=== PATIENT | male | born 1945 | race Caucasian/White ===

== ENCOUNTER → 2017-03-25 | Outpatient (CLI) | payer MEDICARE, OTHER ==
[~2017-03-25] MED LIST: ASPIR-LOW81 MG PO; ASPIR-LOX325 MG PO; ASPIRIN 32325 MG/TAB PO; ASPIRIN E.C. 8181 MG PO; CENTRUM SILVER1 TA1 PO; CEPHALEXIN500 M1 PO; COMPLETE SENIOR1 TA1 PO; EFFEXOR 75M75 MG/TAB PO; EFFEXOR-XR150 MG PO; FERROUS SULFAT325 M1 PO; FLOMAX 0.40.4 MG/CAP PO; FLONASE0.05 MG/AC NS; GABAPENTIN300 M1 PO; IMITREX25 MG PO; LORTAB 5/500 501 TAB PO; MAXALT10 MG PO; NORCO 325 MG-51 TAB PO; PRILOSEC 20MG20 MG PO; SINGULAIR 110 MG/TAB PO; SINGULAIR10 MG PO; ULTRAM50 MG PO; ZOCOR40 MG PO
== END ==
LOC: COL.RAD 07:08
DX: K55.9 Vascular disorder of intestine, unspecified (principal); I70.0 Atherosclerosis of aorta; J43.9 Emphysema, unspecified; N28.1 Cyst of kidney, acquired
CPT/HCPCS: Q9967

== ENCOUNTER → 2018-10-27 | Outpatient (CLI) | payer MEDICARE | LOC: COL.RAD 12:36 | DX: N50.3 Cyst of epididymis (principal); N43.3 Hydrocele, unspecified ==

== ENCOUNTER → 2018-11-03 | Outpatient (REF) | LOC: ZLAB.WCH 08:34 | DX: Z01.89 Encounter for other specified special examinations (principal) ==

== ENCOUNTER 2018-11-21 06:32 | Emergency (ER) | payer MEDICARE ==
[~2018-11-21] VITALS: Ht 167.6 cm; Wt 57.3 kg
[2018-11-21 06:41] VITALS: TEMP 97.5
[2018-11-21] MEDS ORDERED: NEURONTIN300 MG/CAP PO (07:51)
[2018-11-21] MEDS ORDERED: LIPITOR 10MG10 MG PO (07:51)
[2018-11-21] MEDS ORDERED: BACTRIM DS 8001 TAB PO (07:51)
[2018-11-21 08:10] LABS: COLLECTION METHOD CLEAN CATCH
[2018-11-21 08:13] LABS: BASO # 0.1 (0.0-0.2); BASO % 1.3 % (0.0-2.0); EOS # 0.5 (0.0-0.7); EOS % 4.4 % (0-4.0); GRAN # 8.2 (1.4-6.5); GRAN % 73.2 % (42.2-75.2); LYMPH # 1.5 (1.2-3.4); LYMPH % 13.2 % (20.0-51.0); MEAN CELL VOLUME 87 fl (80.0-100.0); MEAN CORPUSCULAR HEMOGLOBIN 28 pg (27.0-31.0); MEAN CORPUSCULAR HGB CONC 32 g/dl (33.0-37.0); MEAN PLATELET VOLUME 9.1 fl (7.4-10.4); MONO # 0.8 (0.1-0.6); MONO % 7.5 % (1.7-9.3); PLATELET COUNT 418 K/mm3 (130-400); RED BLOOD COUNT 4.69 M/mm3 (4.20-5.60); REDCELL DISTRIBUTION WIDTH-CV 14.9 % (11.5-14.5)
[2018-11-21 08:17] LABS: PH 7 (5-8); SQUAMOUS EPITHELIAL None Seen /hpf; URINE APPEARANCE Hazy; URINE BACTERIA None Seen /hpf; URINE BILIRUBIN Negative (NEGATIVE); URINE BLOOD 3+ (NEGATIVE); URINE COLOR Yellow; URINE GLUCOSE Negative (NEGATIVE); URINE KETONE Negative (NEGATIVE); URINE LEUKOCYTE ESTERASE 2+ (NEGATIVE); URINE NITRATE Negative (NEGATIVE); URINE PROTEIN(semi-quant) 1+ (NEGATIVE); URINE RBC >50 /hpf
[2018-11-21 08:25] LABS: ALANINE AMINOTRANSFERASE 15 U/L (21-72); ALBUMIN 3.8 gm/dL (3.5-5.0); ALKALINE PHOSPHATASE 96 U/L (50-136); ANION GAP 4 mmol/L (7-16); AST,SGOT 24 U/L (15-37); BILIRUBIN,TOTAL 0.3 mg/dL (0.0-1.0); BLOOD UREA NITROGEN 15 mg/dL (9-20); CALCIUM 9.2 mg/dL (8.4-10.2); CARBON DIOXIDE 30 mmol/L (22-30); CHLORIDE 104 mmol/L (98-107); CREATININE, serum 0.84 mg/dL (0.66-1.25); GLUCOSE 89 mg/dL (74-106); LIPASE 57 U/L (23-300); POTASSIUM 4.2 mmol/L (3.4-5.0); SODIUM 139 mmol/L (137-145); TOTAL PROTEIN 6.9 gm/dL (6.4-8.2)
[2018-11-21 08:30] LABS: C-REACTIVE PROTEIN < 0.5 mg/dL (0.0-0.9)
[2018-11-21] MEDS ORDERED: NORCO 325 MG-51 TAB PO (10:03)
[2018-11-21] MEDS ORDERED: LEVAQUIN 5500 MG/TA1 PO (10:03)
[2018-11-21 10:55] VITALS: BP 162/79; PULSE 72
== END 2018-11-21 10:55 | disposition home or self-care (01) ==
LOC: COL.ER 06:32
PROVIDERS: Family Medicine
DX: N39.0 Urinary tract infection, site not specified (principal); I10 Essential (primary) hypertension; J44.9 Chronic obstructive pulmonary disease, unspecified; F17.210 Nicotine dependence, cigarettes, uncomplicated; Z96.0 Presence of urogenital implants; Z86.73 Personal history of transient ischemic attack (TIA), and cerebral infarction without residual deficits; Z79.82 Long term (current) use of aspirin
CPT/HCPCS: J0696; J2270; J2405; J7030